=== PATIENT | female | born 1995 | race Two or more races ===

== ENCOUNTER 2019-04-07 19:55 | Emergency (ER) | payer MEDICAID ==
[~2019-04-07] VITALS: Ht 165.1 cm; Wt 163.2 kg
[2019-04-07] MEDS ORDERED: ACETAMINOPHEN 500 MG TABLET PO PRN (20:30)
[2019-04-07] MEDS ORDERED: ACETAMINOPHEN 500 MG TABLET ONE (20:35)
[2019-04-07 20:56] LABS: RAPID INFLUENZA A Negative (Negative); RAPID INFLUENZA B Negative (Negative)
[2019-04-07 21:42] VITALS: BP 137/82
== END 2019-04-07 21:59 | disposition home or self-care (01) ==
LOC: ED 21:35
DX: J45.41 Moderate persistent asthma with (acute) exacerbation (principal); J20.8 Acute bronchitis due to other specified organisms; E03.9 Hypothyroidism, unspecified
CPT/HCPCS: 71045; 87400; 93005; 99284; J7512